=== PATIENT | female | born 1995 | race Two or more races ===

== ENCOUNTER 2023-03-03 15:04 | Emergency (ER) | payer SELFPAY ==
[~2023-03-03] VITALS: Ht 154.9 cm; Wt 90.0 kg
[2023-03-03] MEDS ORDERED: IBUPROFEN 600MG TABLET PO ONE (15:30)
[2023-03-03 15:43] VITALS: BP 144/86
[2023-03-03] MEDS ORDERED: IBUP-2029 MT (17:07)
[2023-03-03] MEDS ORDERED: BO1 TP (17:07)
== END 2023-03-08 ==
LOC: ER 03-08 11:32
DX: S90.02XA Contusion of left ankle, initial encounter (principal); V49.59XA Passenger injured in collision with other motor vehicles in traffic accident, initial encounter; Y93.89 Activity, other specified; Y92.89 Other specified places as the place of occurrence of the external cause; Y99.8 Other external cause status; J45.909 Unspecified asthma, uncomplicated
CPT/HCPCS: 71045; 73600; 73660; 99284; Z7610